=== PATIENT | male | born 1965 | race Caucasian/White ===

== ENCOUNTER 2019-08-07 13:41 | Emergency (ER) | payer BC ==
[2019-08-07] MEDS ORDERED: TETANUS & DIPHTHERIA TOX,ADULT 0.5 ML VIAL ONE (13:57)
--- NOTE | 2019-08-07 14:23 | RAD REPORT ---
EXAM DESCRIPTION: Bharath Vincent Left08/07/2019 2:11 pm CLINICAL HISTORY: Left leg pain status post injury FINDINGS: No fracture is seen. Anterior soft tissue laceration
[2019-08-07] MEDS ORDERED: LIDOCAINE 1% 20 ML MDV ONE (14:40)
--- NOTE | 2019-08-07 15:26 | EDPHYS ---
Physician Documentation [facility] Name: Edward Tai Age: 54 yrs Sex: Male : 1965 Arrival Date: 08/07/2019 Time: 13:42 Bed 6 Private MD: ED Physician Surinder Wilson HPI: 08/07 14:25 This 54 yrs old Male presents to ER via EMS with complaints of Laceration To pm1 Leg. 14:25 The patient has a laceration related to: working, occurred at work, The injury was pm1 Patient holding a heavy kamilah and he fell backwards. Let go of the kamilah to support his fall with his hands and the kamilah hit his left gregory causing an abrasion through his pants. Pants were intact. The laceration(s) is(are) located on the left gregory. Onset: The symptoms/episode began/occurred just prior to arrival. Associated signs and symptoms: The patient has no apparent associated signs or symptoms. The patient has not experienced similar symptoms in the past. It is unknown whether or not the patient has recently seen a physician. Historical: - Allergies: 13:45 No Known Allergies; sv - PMHx: 13:45 None; sv - Immunization history:: Adult Immunizations up to date. - Coronavirus screen:: The patient has NOT traveled to [place], [place], or [place] in the past 14 days. Proceed with normal triage process as indicated. The patient has NOT had contact with known/suspected case of Coronavirus? Proceed with normal triage procedures. - Immunization history: Last tetanus immunization: unknown. - Social history:: Smoking status: Patient denies any tobacco usage or history of. - Ebola Screening: : No symptoms or risks identified at this time. ROS: 14:25 Constitutional: Negative for fever, chills, and weight loss, Neck: Negative for injury, pm1 pain, and swelling, Cardiovascular: Negative for chest pain, palpitations, and edema, Respiratory: Negative for shortness of breath, cough, wheezing, and pleuritic chest pain, Abdomen/GI: Negative for abdominal pain, nausea, vomiting, diarrhea, and constipation, Back: Negative for injury and pain. 14:25 Neuro: Negative for headache, weakness, numbness, tingling, and seizure. 14:25 MS/extremity: Positive for laceration, pain, of the left gregory. 14:25 Skin: Positive for laceration(s), of the left gregory. Exam: 14:25 Constitutional: This is a well developed, well nourished patient who is awake, alert, pm1 and in no acute distress. Head/Face: Normocephalic, atraumatic. Neck: Trachea midline, no thyromegaly or masses palpated, and no cervical lymphadenopathy. Supple, full range of motion without nuchal rigidity, or vertebral point tenderness. No Meningismus. Chest/axilla: Normal chest wall appearance and motion. Nontender with no deformity. No lesions are appreciated. Cardiovascular: Regular rate and rhythm with a normal S1 and S2. No gallops, murmurs, or rubs. Normal PMI, no JVD. No pulse deficits. Respiratory: Lungs have equal breath sounds bilaterally, clear to auscultation and percussion. No rales, rhonchi or wheezes noted. No increased work of breathing, no retractions or nasal flaring. Abdomen/GI: Soft, non-tender, with normal bowel sounds. No distension or tympany. No guarding or rebound. No evidence of tenderness throughout. Back: No spinal tenderness. No costovertebral tenderness. Full range of motion. 14:25 MS/ Extremity: Pulses equal, no cyanosis. Neurovascular intact. Full, normal range of motion. 14:25 Skin: Appearance: normal except for affected area, injury, laceration(s), the wound is approximately 12 cm(s), with a depth of 1 cm(s), of the left gregory. 14:25 Neuro: Orientation: is normal, Motor: is normal, moves all fours, Sensation: is normal, no obvious gross deficits. Vital Signs: 13:44 BP 166 / 80; Pulse 91; Resp 18; Temp 97.5; Pulse Ox 99% ; Weight 88.45 kg; Height 5 ft. sv 6 in. (167.64 cm); Pain 8/10; 14:30 BP 148 / 78; Pulse 88; Resp 15; Pulse Ox 99% on R/A; hb 13:44 Body Mass Index 31.47 (88.45 kg, 167.64 cm) sv Ruiz Coma Score: 13:44 Eye Response: spontaneous(4). Verbal Response: oriented(5). Motor Response: obeys sv commands(6). Total: 15. Trauma Score (Adult): 13:44 Eye Response: spontaneous(1); Verbal Response: oriented(1); Motor Response: obeys sv commands(2); Systolic BP: > 89 mm Hg(4); Respiratory Rate: 10 to 29 per min(4); Cavour Score: 15; Trauma Score: 12 14:30 Eye Response: spontaneous(1); Verbal Response: oriented(1); Motor Response: obeys hb commands(2); Systolic BP: > 89 mm Hg(4); Respiratory Rate: 10 to 29 per min(4); Ruiz Score: 15; Trauma Score: 12 Laceration: 15:19 Wound Repair of 12cm ( 4.7in ) subcutaneous laceration to left gregory. Irregularly pm1 shaped.. Distal neuro/vascular/tendon intact. Anesthesia: Local anesthetic administered with 20 mls of 1% lidocaine. Wound prep: Extensive cleansing with betadine with hibiclenz by me, Wound irrigation with saline by me, Wound explored, Copious irrigation. Skin closed with 14 1-0 [place] using staple gun. Dressed with Neosporin, non-adherent dressing. Patient tolerated well. MDM: 13:49 Patient medically screened. pm1 15:19 Data reviewed: vital signs. Data interpreted: Pulse oximetry: on room air is 99 %. pm1 Interpretation: normal. Counseling: I had a detailed discussion with the patient and/or guardian regarding: the historical points, exam findings, and any diagnostic results supporting the discharge/admit diagnosis, radiology results, the need for outpatient follow up, to return to the emergency department if symptoms worsen or persist or if there are any questions or concerns that arise at home. 08/07 13:50 Order name: Tib Fib Left XRAY; Complete Time: 14:26 pm1 08/07 14:36 Order name: Dressing - Wound; Complete Time: 14:38 pm1 08/07 14:36 Order name: Gloves, Sterile; Complete Time: 14:38 pm1 08/07 14:36 Order name: Setup Suture Tray; Complete Time: 14:38 pm1 08/07 15:32 Order name: Knee Immobilizer; Complete Time: 15:56 pm1 Administered Medications: 13:35 Drug: Tetanus-Diphtheria Toxoid Adult 0.5 ml {Laboratory Sample Carrier: [employer]. Exp: hb 07/25/2021. Lot #: [id number]. } Route: IM; Site: left deltoid; 14:30 Follow up: Response: No adverse reaction hb 14:58 Drug: Lidocaine (1 %) 20 ml Volume: 20 ml; Route: Infiltration; hb 15:27 Drug: ceFAZolin 1 grams Volume: 50 ml; Route: IVPB; Infused Over: 30 mins; Site: left sv forearm; 15:32 Follow up: Response: No adverse reaction; IV Status: Completed infusion; IV Intake: sv 10ml ; given IVP per pharmacy Disposition: 08/08 07:31 Co-signature as Attending Physician, Surinder Wilson MD I agree with the assessment and [facility] plan of care. Disposition: 08/07/19 15:26 Discharged to Home. Impression: Laceration without foreign body, left lower leg. - Condition is Stable. - Discharge Instructions: Laceration Care, Adult. - Prescriptions for Keflex 500 mg Oral Capsule - take 1 capsule by ORAL route every 6 hours for 10 days; 40 capsule. Tylenol- Codeine #3 300-30 mg Oral Tablet - take 2 tablets by ORAL route every 6 hours As needed; 20 tablet. - Work release form, Medication Reconciliation Form, Thank You Letter, Antibiotic Education, Prescription Opioid Use form. - Follow up: Emergency Department; When: As needed; Reason: Worsening of condition. Follow up: Private Physician; When: 2 - 3 days; Reason: Recheck today's complaints, Continuance of care, Re-evaluation by your physician, staple removal in 10-14 days. - Problem is new. - Symptoms have improved. Signatures: Dispatcher [employer] Melvi Chapman RN RN sv Anderson, Corey, MD MD cha Marinas, Patrick, PB CHILD AND ADOLESCENT PSYCHIATRIST pm1 Jeaneth Pineda RN RN Corrections: (The following items were deleted from the chart) 08/07 16:04 15:26 08/07/2019 15:26 Discharged to Home. Impression: Laceration without foreign body, sv left lower leg. Condition is Stable. Forms are Medication Reconciliation Form, Thank You Letter, Antibiotic Education, Prescription Opioid Use. Follow up: Emergency Department; When: As needed; Reason: Worsening of condition. Follow up: Private Physician; When: 2 - 3 days; Reason: Recheck today's complaints, Continuance of care, Re-evaluation by your physician, staple removal in 10-14 days. Problem is new. Symptoms have improved. pm1
--- NOTE | 2019-08-07 15:26 | ER ---
Nurse's Notes [facility] Name: Edward Tai Age: 54 yrs Sex: Male : 1965 Arrival Date: 08/07/2019 Time: 13:42 Bed 6 Private MD: Diagnosis: Laceration without foreign body, left lower leg Presentation: 08/07 13:33 Presenting complaint: EMS states: LLE laceration after having a squeeze kamilah that is sv 50-70 pounds, fell onto him after he lost his footing and fell backward. Denies LOC or head injury. Transition of care: patient was not received from another setting of care. Complicating Factors: There are no complicating factors for this patient. Onset of symptoms was August 07, 2019. Risk Assessment: Do you want to hurt yourself or someone else? Patient reports no desire to harm self or others. Initial Sepsis Screen: Does the patient meet any 2 criteria? No. Patient's initial sepsis screen is negative. Does the patient have a suspected source of infection? Yes: Skin breakdown/wound. Care prior to arrival: IV initiated. 20 GA, in the right forearm. 13:33 Method Of Arrival: EMS: [facility] sv 13:33 Acuity: TALYA 3 sv 13:48 Trauma event details: Injury occurred in the [facility], Injury occurred: in a public building. Injury occurred: August 07, 2019. Trauma Activation: Not Applicable Physician: ED Physician; Name: ; Notified At: ; Arrived At: Physician: General Surgeon; Name: ; Notified At: ; Arrived At: Physician: Radiology; Name: ; Notified At: ; Arrived At: Physician: Respiratory; Name: ; Notified At: ; Arrived At: Physician: Lab; Name: ; Notified At: ; Arrived At: Historical: - Allergies: 13:45 No Known Allergies; sv - PMHx: 13:45 None; sv - Immunization history:: Adult Immunizations up to date. - Coronavirus screen:: The patient has NOT traveled to [place], [place], or [place] in the past 14 days. Proceed with normal triage process as indicated. The patient has NOT had contact with known/suspected case of Coronavirus? Proceed with normal triage procedures. - Immunization history: Last tetanus immunization: unknown. - Social history:: Smoking status: Patient denies any tobacco usage or history of. - Ebola Screening: : No symptoms or risks identified at this time. Screenin:46 Abuse screen: Denies threats or abuse. Denies injuries from another. Nutritional sv screening: No deficits noted. Tuberculosis screening: No symptoms or risk factors identified. Fall Risk None identified. Primary Survey: 13:35 NO uncontrolled hemorrhage observed. A: The patient is alert. Airway: patent, No sv supplemental oxygen in use on arrival. Oral cavity: clear, Trachea midline. Breathing/Chest: Respiratory pattern: regular, Respiratory effort: spontaneous, unlabored, Chest inspection: symmetrical rise and fall of the chest. Circulation: Pulses: palpable right posterior tibial artery and left posterior tibial artery. Skin color: pink, Skin temperature: warm, dry. Disability Alert. Exposure/Environment: All clothing and personal items were removed. Forensic evidence collection is not deemed to be indicated at this time. Items placed in patient belonging bag. There is no evidence of uncontrolled external bleeding. A warming method has been applied: A warm blanket has been provided to the patient. 14:30 Reassessment Airway Airway Patent Breathing/Chest Respiratory pattern Regular hb Respiratory effort Spontaneous Unlabored Chest inspection Symmetrical Circulation Color Haw[place] Temperature Warm Dry Disability Alert. Secondary Survey: 13:35 HEENT: No deficits noted. Gastrointestinal: No deficits noted. : No deficits noted. sv No signs and/or symptoms were reported regarding the genitourinary system. Injury Description: Laceration sustained to left gregory is 7.6 to 20 cm long, not bleeding, was sustained 30-60 minutes ago. Assessment: 14:57 Reassessment: PB Fabian at bedside for laceration repair. hb Vital Signs: 13:44 BP 166 / 80; Pulse 91; Resp 18; Temp 97.5; Pulse Ox 99% ; Weight 88.45 kg; Height 5 ft. sv 6 in. (167.64 cm); Pain 8/10; 14:30 BP 148 / 78; Pulse 88; Resp 15; Pulse Ox 99% on R/A; hb 13:44 Body Mass Index 31.47 (88.45 kg, 167.64 cm) sv Ruiz Coma Score: 13:44 Eye Response: spontaneous(4). Verbal Response: oriented(5). Motor Response: obeys sv commands(6). Total: 15. Trauma Score (Adult): 13:44 Eye Response: spontaneous(1); Verbal Response: oriented(1); Motor Response: obeys sv commands(2); Systolic BP: > 89 mm Hg(4); Respiratory Rate: 10 to 29 per min(4); [place] Score: 15; Trauma Score: 12 14:30 Eye Response: spontaneous(1); Verbal Response: oriented(1); Motor Response: obeys hb commands(2); Systolic BP: > 89 mm Hg(4); Respiratory Rate: 10 to 29 per min(4); Ruiz Score: 15; Trauma Score: 12 ED Course: 13:33 Maintain EMS IV. Dressing intact. Site clean \T\ dry. Gauge \T\ site: 20G L FA. sv 13:42 Patient arrived in ED. sv 13:42 Melvi Obando RN is Primary Nurse. sv 13:44 Triage completed. sv 13:45 Arm band placed on. sv 13:45 Patient has correct armband on for positive identification. Bed in low position. Call sv light in reach. Side rails up X 1. Pulse ox on. NIBP on. Door closed. Head of bed elevated. 13:46 Rui Chris NP is PHCP. pm1 13:46 Surinder Wilson MD is Attending Physician. pm1 13:48 Nurse Practitioner and/or Physician Ground Surveillance Systems Operator to see patient. sv 13:48 Patient maintains SpO2 saturation greater than 95% on room air. sv 13:49 Thermoregulation: warm blanket given to patient. sv 14:11 Tib Fib Left XRAY In Process Unspecified. EDMS 15:00 Assist provider with laceration repair on left gregory that was between 7.6 to 12.5 cm sv using luis. Set up tray. Performed by Rui Chris TECHNOLOGY SALES SPECIALIST Dressed with 4X4s, Adaptic, with mikel wrap Patient tolerated well. 15:50 Knee immobilizer applied on left knee. sv Administered Medications: 13:35 Drug: Tetanus-Diphtheria Toxoid Adult 0.5 ml {Primary Clinician: [employer]. Exp: hb 07/25/2021. Lot #: [id number]. } Route: IM; Site: left deltoid; 14:30 Follow up: Response: No adverse reaction hb 14:58 Drug: Lidocaine (1 %) 20 ml Volume: 20 ml; Route: Infiltration; hb 15:27 Drug: ceFAZolin 1 grams Volume: 50 ml; Route: IVPB; Infused Over: 30 mins; Site: left sv forearm; 15:32 Follow up: Response: No adverse reaction; IV Status: Completed infusion; IV Intake: sv 10ml ; given IVP per pharmacy Intake: 13:44 PO: 0ml; Total: 0ml. sv 15:32 IV: 10ml; Total: 10ml. sv Output: 13:44 Urine: 0ml; Total: 0ml. sv Outcome: 15:26 Discharge ordered by . pm1 16:03 Discharged to home ambulatory, with family, knee immobilizer sv 16:03 Condition: stable 16:03 Discharge instructions given to patient, family, Instructed on discharge instructions, follow up and referral plans. no drinking with medication, no driving heavy equipment, medication usage, Demonstrated understanding of instructions, follow-up care, medications, Prescriptions given X 2. 16:04 Patient left the ED. sv Signatures: Dispatcher [employer] Melvi Chapman RN RN sv Rui Chris, TECHNOLOGY SALES SPECIALIST TECHNOLOGY SALES SPECIALIST pm1 Jeaneth Pineda RN RN hb
[2019-08-07] MEDS ORDERED: CEFAZOLIN/SWI 1gm 1 GM/10 ML SYR ONE (15:31)
[2019-08-07 17:00] VITALS: TEMP 97.5; O2SAT 99
[2019-08-07 17:02] VITALS: BP 148/78
== END 2019-08-07 16:04 | disposition home or self-care (01) ==
LOC: ER 13:41
PROC: 0JQP0ZZ Repair Left Lower Leg Subcutaneous Tissue and Fascia, Open Approach (ICD-10-PCS; principal; 2019-08-07)
DX: S81.812A Laceration without foreign body, left lower leg, initial encounter (principal); W22.8XXA Striking against or struck by other objects, initial encounter; Y93.89 Activity, other specified; Y92.89 Other specified places as the place of occurrence of the external cause; Y99.8 Other external cause status; Z23 Encounter for immunization
CPT/HCPCS: 73590; 90471; 90714; 96374; 99285; 12004; J0690